=== PATIENT | female | born 1995 | race Caucasian/White ===

== ENCOUNTER → 2023-11-28 12:55 | Outpatient (REF) | payer BC, SELFPAY | LOC: RAD 12:55 | PROVIDERS: ATTENDING PHYSICIAN Physician Assistant Medical; FAMILY PHYSICIAN Family Medicine | DX: N92.6 Irregular menstruation, unspecified (principal) | CPT/HCPCS: 76830; 76856 ==

== ENCOUNTER → 2024-05-19 12:57 | Outpatient (REF) | payer BC, SELFPAY | LOC: RAD 12:57 | PROVIDERS: ATTENDING PHYSICIAN Family Medicine | DX: R07.81 Pleurodynia (principal) | CPT/HCPCS: 71046 ==

== ENCOUNTER → 2024-07-30 12:59 | Outpatient (REF) | payer BC, SELFPAY | LOC: RAD 12:59 | PROVIDERS: ATTENDING PHYSICIAN Nurse Practitioner Family; FAMILY PHYSICIAN Physician Assistant Medical | DX: E04.2 Nontoxic multinodular goiter (principal) | CPT/HCPCS: 76536 ==